=== PATIENT | male | born 1950 | race Caucasian/White ===

== ENCOUNTER 2018-12-27 06:56 | Outpatient (CLI) | payer MEDICARE ==
--- NOTE | 2018-12-27 08:29 | ULT ---
VENOUS DOPPLER ULTRASOUND OF THE LEFT LOWER EXTREMITY: INDICATIONS: Pain within the left leg. TECHNIQUE: Scruggs-scale, color Doppler, and vascular duplex with spectral analysis was performed of the deep venou s structures of both lower extremities. The common femoral vein, superficial femoral vein, popliteal vein, posterior tibial vein, proximal greater saphenous, and proximal profunda veins were assessed bi laterally. FINDINGS: There is normal compression, flow, and augmentation seen within the deep venous structures of the lef t lower extremity. IMPRESSION: No evidence of deep venous thrombosis within the left lower extremity. POS: [facility]
== END 2018-12-27 06:57 | disposition home or self-care (01) ==
LOC: ULT 06:56
PROVIDERS: ATTEND Family Medicine
DX: M79.605 Pain in left leg (principal)

== ENCOUNTER 2019-12-05 20:30 | Outpatient (CLI) | payer MEDICARE | END 2019-12-05 20:31 | disposition home or self-care (01) | LOC: SLEEPLAB 20:30 | PROVIDERS: ATTEND Internal Medicine | DX: G47.33 Obstructive sleep apnea (adult) (pediatric) (principal); R53.83 Other fatigue; R51 Headache; E66.9 Obesity, unspecified; K21.9 Gastro-esophageal reflux disease without esophagitis; R06.83 Snoring; R35.1 Nocturia; E11.9 Type 2 diabetes mellitus without complications; I11.0 Hypertensive heart disease with heart failure; I50.9 Heart failure, unspecified; I25.10 Atherosclerotic heart disease of native coronary artery without angina pectoris; G47.10 Hypersomnia, unspecified; G47.00 Insomnia, unspecified; R09.02 Hypoxemia; G47.31 Primary central sleep apnea | CPT/HCPCS: 95811 ==

== ENCOUNTER 2021-09-30 09:02 | Outpatient (CLI) | payer MEDICARE | END 2021-09-30 09:03 | disposition home or self-care (01) | LOC: TBSIIMAG 09:02 | PROVIDERS: ATTEND Neurological Surgery | DX: M47.22 Other spondylosis with radiculopathy, cervical region (principal) | CPT/HCPCS: 72040 ==

== ENCOUNTER 2021-10-28 09:14 | Outpatient (CLI) | payer MEDICARE ==
[2021-10-28 10:19] LABS: Hemoglobin 12.1 g/dL (13.5-17.5); Mean Corpuscular HGB CONC 32.7 g/dL (32.0-36.0); Mean Corpuscular Volume 91.8 fl (81.2-95.1); Mean Platelet Volume 10.5 fl (7.4-10.4); Platelet Count 274 10x3/uL (150-450); RBC Distribution Width 13.1 % (11.5-14.5); Red Blood Cell (RBC) Count 4.03 10x6/uL (4.32-5.72); White Blood Cell (WBC) Count 8.7 10x3/uL (3.5-10.5)
[2021-10-28 10:37] LABS: Anion Gap 14 mmol/L (10-20); BUN (Urea Nitrogen) 27 mg/dL (8.4-25.7); Calc. Creatinine Clearance 0 mL/min (70-130); Calcium 9.5 mg/dL (7.8-10.44); Carbon Dioxide 27 mmol/L (23-31); Chloride 103 mmol/L (98-107); Glucose 121 mg/dL (83-110); Potassium 4.8 mmol/L (3.5-5.1); Sodium 139 mmol/L (136-145)
[2021-10-28 22:24] LABS: SARS-CoV-2 PCR by NAA Not Detected (NotDetected)
== END 2021-10-28 09:15 | disposition home or self-care (01) ==
LOC: LABBT 09:14
PROVIDERS: ATTEND Neurological Surgery
DX: Z01.818 Encounter for other preprocedural examination (principal); Z20.822 Contact with and (suspected) exposure to COVID-19
CPT/HCPCS: 80048; 85027; 93005; U0003; U0005; 93010

== ENCOUNTER 2021-10-30 05:30 | Day surgery (SDC) | payer MEDICARE ==
[2021-10-23 16:09] VITALS: BMI 36.6
[2021-10-30] MEDS ORDERED: Thrombin 5000 UNITS/5 ML VIAL ONE (06:20)
[2021-10-30] MEDS ORDERED: ceFAZolin 2 GM/DEX 5% 100 ML BAG ONE ×2 (06:34→12:47)
[2021-10-30] MEDS ORDERED: Lidocaine 1% PF 5 ML VIAL ONE (06:36)
[2021-10-30] MEDS ORDERED: Dexamethasone 20 MG/5 ML VIAL ONE (06:36)
[2021-10-30] MEDS ORDERED: Metoclopramide HCl 10 MG/2 ML VIAL ONE (06:36)
[2021-10-30] MEDS ORDERED: PROPOFOL 200 MG/20 ML VIAL ONE (06:36)
[2021-10-30] MEDS ORDERED: Phenylephrine 10 MG/ML VIAL ONE (06:36)
[2021-10-30] MEDS ORDERED: Ondansetron PF 4 MG/2 ML Vial ONE (06:36)
[2021-10-30] MEDS ORDERED: Rocuronium Bromide 10 MG/ML (10ML VIAL) ONE (06:36)
[2021-10-30] MEDS ORDERED: Famotidine/PF 20 mg/2ml Vial ONE (06:37)
[2021-10-30] MEDS ORDERED: Fentanyl 100 MCG/2 ML VIAL ONE ×2 (06:50→09:12)
[2021-10-30] MEDS ORDERED: SUGAMMADEX SODIUM 200 MG/2 ML VIAL ONE ×2 (08:02→08:41)
[2021-10-30] MEDS ORDERED: Tamsulosin HCl 0.4 MG CAP ONE ×2 (08:49→11:45)
[2021-10-30] MEDS ORDERED: HYDROcodone/Acetaminophen 5/325 mg Tablet ONE (13:24)
== END 2021-10-30 13:45 | disposition home or self-care (01) ==
LOC: SDC 05:30
PROVIDERS: ATTEND Neurological Surgery
PROC: 0RG20A0 Fusion of 2 or more Cervical Vertebral Joints with Interbody Fusion Device, Anterior Approach, Anterior Column, Open Approach (ICD-10-PCS; principal; 2021-10-30)
DX: M54.12 Radiculopathy, cervical region (principal); M43.12 Spondylolisthesis, cervical region; M48.02 Spinal stenosis, cervical region; E11.9 Type 2 diabetes mellitus without complications; M19.90 Unspecified osteoarthritis, unspecified site; I10 Essential (primary) hypertension; E78.5 Hyperlipidemia, unspecified; D53.9 Nutritional anemia, unspecified; N40.0 Benign prostatic hyperplasia without lower urinary tract symptoms; E66.01 Morbid (severe) obesity due to excess calories; Z68.36 Body mass index [BMI] 36.0-36.9, adult; Z79.4 Long term (current) use of insulin; Z79.82 Long term (current) use of aspirin; Z79.84 Long term (current) use of oral hypoglycemic drugs; Z79.899 Other long term (current) drug therapy; Z91.048 Other nonmedicinal substance allergy status; Z95.0 Presence of cardiac pacemaker; Z96.41 Presence of insulin pump (external) (internal)
CPT/HCPCS: 36416; 76000; C1713; C1776; J1100; J2370; J2405; J2704; J2765; J3010; S0028

== ENCOUNTER 2021-11-04 12:21 | Emergency (ER) | payer MEDICARE | END 2021-11-04 15:57 | disposition left against medical advice (07) | LOC: ERS 12:21 | DX: Z53.21 Procedure and treatment not carried out due to patient leaving prior to being seen by health care provider (principal) ==

== ENCOUNTER 2022-04-11 14:44 | Outpatient (CLI) | payer MEDICARE | END 2022-04-11 14:45 | disposition home or self-care (01) | LOC: MRI 14:44 | PROVIDERS: ATTEND Orthopaedic Surgery | DX: M54.2 Cervicalgia (principal); M54.50 Low back pain, unspecified; M51.36 Other intervertebral disc degeneration, lumbar region; M48.061 Spinal stenosis, lumbar region without neurogenic claudication; Z98.1 Arthrodesis status | CPT/HCPCS: 72040; 72148 ==

== ENCOUNTER 2025-09-29 12:45 | Emergency (ER) | payer MEDICARE ==
[2025-09-29] MEDS ORDERED: Acetaminophen 325 MG TAB ONE (16:37)
== END 2025-09-29 16:53 | disposition home or self-care (01) ==
LOC: ERS 12:45
DX: S41.009A Unspecified open wound of unspecified shoulder, initial encounter (principal); S30.0XXA Contusion of lower back and pelvis, initial encounter; S30.91XA Unspecified superficial injury of lower back and pelvis, initial encounter; S20.301A Unspecified superficial injuries of right front wall of thorax, initial encounter; M25.561 Pain in right knee; M25.562 Pain in left knee; W18.2XXA Fall in (into) shower or empty bathtub, initial encounter; Y93.E1 Activity, personal bathing and showering
CPT/HCPCS: 70450; 72170; 72220; 90471; 90715